=== PATIENT | female | born 1990 | race Hispanic/Latino ===

== ENCOUNTER 2019-10-18 11:28 | Day surgery (SDC) | payer OTHER ==
[2019-10-18 12:11] VITALS: BMI 30.2
--- NOTE | 2019-10-18 12:50 | PDOC.FPROB ---
FMR OB H&P: HPI - History of Present Illness Chief Complaint: CTX Indentification: at 28.2 here for CTX History of Present Illness: at 28.2 here for CTX starting at 3AM. Reports every 10min, now every 5- 10min. No inc. HOUSEKEEPING LEAD/no new VD/LOF/leaking/VB. Endorses FM. Has a hx of PTL with delivery at 34 & 36 weeks. Currently receiving weekly [place] injections. Denies dysuria, fever, flank pain. Primary Care Physician: LyndonOT FMR OB H&P: Current - Care : 4 Para: [id number] Gestational age: 28.2 - OB Labs Blood type: unknown RH: unknown Antibody Screen: unknown HIV: unknown RPR: unknown HepBsAg: unknown Quad screen: unknown Gonorrhea: unknown Chlamydia: unknown GBS: unknown FMR OB H&P: History - Past Medical History PMH: None - OB History OB History: 1. 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[employer] History: Cervical cryotherapy a few years ago - Surgical History Sx History: Denies - Social History Social History: Denies TAD - Family History Family History: BP, HTN- mother FMR OB H&P: Medications - Current Home Medications: Medication Instructions Recorded Confirmed Type Hydroxyprogesterone Caproat/Pf 250 mg IM 10/18/19 History [[facility] [place]] Vit No.129/Iron/Folic 1 each PO 10/18/19 History [ Tablet] Allergies/Adverse Reactions: Allergies Allergy/AdvReac Type Severity Reaction Status Date / Time No Known Allergies Allergy Unverified 10/18/19 12:08 FMR OB H&P: ROS - Review of Systems General: denies: fever/chills, weight/appetite/sleep changes Eyes: denies: vision changes, double vision ENT: denies: nasal congestion, rhinorrhea Respiratory: denies: cough, shortness of breath Gastrointestinal: denies: abdominal pain, bloating, cramping, vomiting Genitourinary (Female): reports: contractions. denies: incontinence, dysuria, hematuria, vaginal discharge, vaginal pain, vaginal bleeding, vaginal pressure Neurologic: denies: syncope, seizures, weakness Integumentary: denies: itching, rash Endocrine: denies: cold intolerance, heat intolerance FMR OB H&P: Physical Exam - Physical Exam General: NAD, awake, alert and oriented HEENT: normocephalic and atraumatic, EOMI, MMM, conjunctiva clear Neck: FROM, trachea midline Heart: RRR, normal S1/S2, no murmurs/rubs/gallops General: no respiratory distress, good air movement Abdomen: soft, gravid, non-tender Skin: good tugor, no jaundice Lymphatic: no unusual bruising or bleeding, no purpura Psychiatric: intact recent and remote memory, good judgement and insight - Pelvic Exam Vulva: normal hair distribution SVE: cl/th/high FMR OB H&P: A/P - Problem List (1) with 28 completed weeks gestation Status: Acute Code(s): Z3A.28 - 28 WEEKS GESTATION OF (2) History of delivery Status: Acute Code(s): Z87.51 - PERSONAL HISTORY OF PRE-TERM LABOR Discussion: Date/Time: 10/18/190 1. at 28 weeks, r/o labor -SVE: cl/th/h - monitoring -Send FFN, obtain cervical length 2. Hx of PTL -continue weekly [place] injections Dispo: Workup for PTL, monitor, orally hydrate This H&P was discussed with Dr. Skip Lou who agrees with the above documentation and plan. Addendum - Attending - Attending Attestation Date/Time: 10/18/192049 I personally evaluated the patient and discussed the management with Dr. Loredo. I agree with the History, Examination, Assessment and Plan documented above.
[2019-10-18 13:18] LABS: FFN Internal QC Analyzer PASS (PASS); FFN Internal QC Cassette PASS (PASS); Fetal Fibronectin Negative (Negative)
--- NOTE | 2019-10-18 13:43 | PDOC.EVN ---
Event Note - Event Note Event Note: FHT reactive & reassuring Uterine irritability but patient reports cessation on CTX after drinking pitcher of water FFN negative OB US prelim results per tech cervical length ~3.2cm, ANIL ~8cm Discussed results with patient, gave labor precautions Advised to f/u at appt on 10/23 with OBGYN
--- NOTE | 2019-10-18 13:45 | ULT ---
Obstetric sonogram Limited HISTORY: labor. Evaluate cervical length. FINDINGS: Single intrauterine gestation in cephalic presentation. Cervix is closed and 3.4 cm. Amniotic fluid index 9.3. Grade 2 placenta is posterior and fundal.
== END 2019-10-18 13:49 | disposition home or self-care (01) ==
LOC: L&D/OP 11:28
PROVIDERS: ATTEND Obstetrics & Gynecology
DX: O47.03 False labor before 37 completed weeks of gestation, third trimester (principal); O09.213 Supervision of pregnancy with history of pre-term labor, third trimester; Z3A.28 28 weeks gestation of pregnancy
CPT/HCPCS: 76815; 82731; 99284